=== PATIENT | male | born 1960 | race African-American/Black ===

== ENCOUNTER 2017-02-17 10:38 | Emergency (ER) | payer OTHER ==
[~2017-02-17] VITALS: Ht 177.8 cm; Wt 88.6 kg
[2017-02-17] MEDS ORDERED: CLON0.2T PO ×2 (10:50→14:15)
[2017-02-17] MEDS ORDERED: HYDR12.55 PO (10:50)
[2017-02-17] MEDS ORDERED: LISI40TAB PO (10:50)
[2017-02-17] MEDS ORDERED: ATEN25TA PO ×2 (10:50→14:15)
[2017-02-17] MEDS ORDERED: LISI-538 PO ×2 (10:50→14:15)
[2017-02-17] MEDS ORDERED: ADV250INH INH (10:51)
[2017-02-17] MEDS ORDERED: hydroCHLOROthiazide 25 MG TAB PO ONE (11:45)
[2017-02-17] MEDS ORDERED: ATENOLOL 25 MG TAB PO ONE (11:45)
[2017-02-17] MEDS ORDERED: LISINOPRIL 20 MG TAB PO ONE (11:45)
[2017-02-17] MEDS ORDERED: cloNIDine 0.2 MG TAB PO ONE (11:45)
[2017-02-17 11:46] VITALS: BP 212/108
--- NOTE | 2017-02-17 12:05 | REP ---
Chest two views HISTORY: Trauma Comparison: None Linear density is present in the the lower anterior lungs on the lateral radiograph. This represents atelectasis or scar. The heart is normal in size. The pulmonary vasculature is normal in appearance. The bony structure is intact. IMPRESSION: There is a small area of atelectasis or scar in the anterior inferior lungs seen in the lateral radiograph. Signed by Ilan Hernandez MD 02/17/2017 11:58 A
[2017-02-17 12:27] LABS: MEAN CORPUSCULAR HGB CONC 34.6 g/dl (32.0-36.5); MEAN CORPUSCULAR VOLUME 89.5 fl (80.0-96.0); PLATELET COUNT, AUTOMATED 200 10^3/uL (150-450); RED CELL DISTRIBUTION WIDTH 13.6 % (11.5-14.5); WHITE BLOOD COUNT 4.8 10^3/uL (4.0-10.0)
[2017-02-17 12:49] LABS: ANION GAP 4 MEQ/L (8-16); BLOOD UREA NITROGEN 10 MG/DL (7-18); CALCIUM LEVEL 8.8 MG/DL (8.5-10.1); CARBON DIOXIDE LEVEL 31 MEQ/L (21-32); CHLORIDE LEVEL 107 MEQ/L (98-107); CREATININE FOR GFR 1.05 MG/DL (0.70-1.30); GLOMERULAR FILTRATION RATE > 60.0 (>56); GLUCOSE, FASTING 87 MG/DL (70-105); POTASSIUM SERUM 4.3 MEQ/L (3.5-5.1); SODIUM LEVEL 142 MEQ/L (136-145)
[2017-02-17] MEDS ORDERED: KETOROLAC 60 MG/2 ML VIAL (J1885) IM ONE (13:30)
[2017-02-17] MEDS ORDERED: NAPR500T PO (14:15)
[2017-02-17] MEDS ORDERED: HYDR25TAB PO (14:15)
[2017-02-17 14:42] VITALS: BP 160/89
--- NOTE | 2017-02-17 16:50 | REP ---
RIGHT SHOULDER, THREE VIEWS: HISTORY: Trauma. There is no acute fracture or dislocation. The joint spaces are normal in appearance. IMPRESSION: There is no acute fracture or dislocation. Signed by Ilan Hernandez MD 02/17/2017 04:51 P
== END 2017-02-17 14:43 | disposition home or self-care (01) ==
LOC: M ED 10:38
DX: S40.011A Contusion of right shoulder, initial encounter (principal); W10.9XXA Fall (on) (from) unspecified stairs and steps, initial encounter; Y92.019 Unspecified place in single-family (private) house as the place of occurrence of the external cause; Y93.01 Activity, walking, marching and hiking; Y99.8 Other external cause status; I16.0 Hypertensive urgency; Z91.14 Patient's other noncompliance with medication regimen; Z79.899 Other long term (current) drug therapy; Z79.51 Long term (current) use of inhaled steroids
CPT/HCPCS: 36415; 71020; 73030; 80048; 85027; 96372; 99284; J1885

== ENCOUNTER 2017-03-13 13:37 | Emergency (ER) | payer OTHER ==
[~2017-03-13] VITALS: Ht 175.3 cm; Wt 88.4 kg
[~2017-03-13 13:37] MED LIST: ADV250INH INH; ATEN25TA PO; CLON0.2T PO; HYDR12.55 PO; HYDR25TAB PO; LISI-538 PO; LISI40TAB PO; NAPR500T PO
[2017-03-13] MEDS ORDERED: diphenhydrAMINE INJ 50MG/ML VIAL (J1200) IV STA (14:52)
[2017-03-13] MEDS ORDERED: METOPROLOL 5 MG/5 ML VIAL IV STA ×2 (14:52→14:57)
--- NOTE | 2017-03-13 14:55 | REP ---
CT Head without contrast HISTORY: Headache COMPARISON: None A small area of decreased attenuation is present in the fitz. This represents an old lacunar infarction. There is no intraparenchymal hemorrhage, acute infarct, mass or midline shift. The ventricular system is normal in appearance. There is no extra cerebral collection. There is no fracture. The visualized sinuses are clear. 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 Signed by Ilan Hernandez MD 03/13/2017 02:46 P
[2017-03-13] MEDS ORDERED: NS 500 ML IV ONE (15:00)
[2017-03-13] MEDS ORDERED: PROMETHAZINE INJ 25 MG/ML VIAL (J2550) IV ONE (15:00)
--- NOTE | 2017-03-13 15:32 | REP ---
Chest two views HISTORY: Hypertension Comparison: 02/17/2017 The lungs are clear. The heart is normal in size. The pulmonary vasculature is normal in appearance. The bony structure is intact. IMPRESSION: No acute disease. Signed by Ilan Hernandez MD 03/13/2017 03:23 P
[2017-03-13 15:56] LABS: BASO % 0.5 % (0.0-1.0); EOS # 0.2 10^3/uL (0.0-0.50); EOS % 3.5 % (0.0-3.0); IMMATURE GRANULOCYTE % 0.4 % (0-0); LYMPH # 1.4 10^3/uL (1.5-4.5); LYMPH % 25.2 % (24.0-44.0); MEAN CORPUSCULAR HEMOGLOBIN 30.2 pg (27.0-33.0); MEAN CORPUSCULAR HGB CONC 34.4 g/dl (32.0-36.5); MEAN CORPUSCULAR VOLUME 87.7 fl (80.0-96.0); MONO # 0.4 10^3/uL (0.0-0.8); MONO % 7.4 % (0.0-5.0); NEUTROPHILS # 3.6 10^3/uL (1.8-7.7); PLATELET COUNT, AUTOMATED 192 10^3/uL (150-450); RED CELL DISTRIBUTION WIDTH 13.7 % (11.5-14.5); WHITE BLOOD COUNT 5.7 10^3/uL (4.0-10.0)
[2017-03-13] MEDS ORDERED: KETOROLAC 30 MG/ML VIAL (J1885) IV ONE (16:00)
[2017-03-13 16:07] LABS: ANION GAP 6 MEQ/L (8-16); BLOOD UREA NITROGEN 13 MG/DL (7-18); CARBON DIOXIDE LEVEL 28 MEQ/L (21-32); CHLORIDE LEVEL 106 MEQ/L (98-107); CREATININE FOR GFR 1.02 MG/DL (0.70-1.30); GLOMERULAR FILTRATION RATE > 60.0 (>56); GLUCOSE, FASTING 102 MG/DL (70-105); POTASSIUM SERUM 3.9 MEQ/L (3.5-5.1); SODIUM LEVEL 140 MEQ/L (136-145)
[2017-03-13] MEDS ORDERED: TYLE325T5 PO (17:06)
[2017-03-13 17:20] VITALS: BP 171/90
--- NOTE | 2017-03-13 17:57 | ECGEPIP ---
Stationary ECG Study [facility] - ED Test Date: 2017-03-13 Pat Name: DALTON EVANS Department: Room: - Gender: M [employer]: karol : 1960 Requested By: GI Potter PA-C Order Number: [id number] Reading MD: Samia Meadows Measurements Intervals [place] Rate: 54 P: 58 MD: 169 QRS: 30 QRSD: 103 T: 30 QT: 442 QTc: 422 Interpretive Statements SINUS BRADYCARDIA POSSIBLE LEFT VENTRICULAR HYPERTROPHY POSSIBLE EARLY REPOLARIZATION - CLINICAL CORRELATION TO EXCLUDE ISCHEMIA NO PRIOR FOR COMPARISON Electronically Signed On 03-13-2017 17:56:52 EST by Samia Meadows
== END 2017-03-13 17:23 | disposition home or self-care (01) ==
LOC: M ED 13:37
DX: R05 Cough (principal); I10 Essential (primary) hypertension; R00.1 Bradycardia, unspecified; F17.200 Nicotine dependence, unspecified, uncomplicated; I51.9 Heart disease, unspecified; J45.909 Unspecified asthma, uncomplicated; Z79.899 Other long term (current) drug therapy
CPT/HCPCS: 36415; 70450; 71020; 80048; 82550; 82553; 85025; 93005; 96361; 96374; 96375; 99284; J1200; J1885